=== PATIENT | female | born 2005 | race Caucasian/White ===

== ENCOUNTER 2023-09-14 16:01 | Outpatient (CLI) | payer BC, SELFPAY | END 2023-09-14 16:02 | disposition home or self-care (01) | LOC: LKVREF 16:02 | PROVIDERS: PCP Physician Assistant Medical; Visit Provider Physician Assistant Medical | DX: Z83.79 Family history of other diseases of the digestive system (principal) | CPT/HCPCS: 86364 ==

== ENCOUNTER 2024-08-16 08:55 | Outpatient (CLI) | payer BC, SELFPAY ==
[2024-08-16 14:20] LABS: Chlamydia DNA Amplified* NOT DETECTED (No Detected); GC DNA Amplified* NOT DETECTED (No Detected)
== END 2024-08-16 08:56 | disposition home or self-care (01) ==
PROVIDERS: PCP Physician Assistant Medical; Visit Provider Obstetrics & Gynecology
DX: Z01.419 Encounter for gynecological examination (general) (routine) without abnormal findings (principal); Z12.4 Encounter for screening for malignant neoplasm of cervix; Z11.3 Encounter for screening for infections with a predominantly sexual mode of transmission
CPT/HCPCS: 87491; 87591; 87624; 87625; 88141; 88142